=== PATIENT | male | born 1980 | race Caucasian/White ===

== ENCOUNTER 2022-07-25 18:35 | Inpatient (IN) | payer OTHER ==
[~2022-07-25] VITALS: Ht 180.3 cm; Wt 95.1 kg
[2022-07-25] MEDS ORDERED: MORPHINE SULFATE 4 MG/ML SYR/VIAL IV ONE (19:00)
[2022-07-25] MEDS ORDERED: ONDANSETRON HCL 4 MG/2 ML VIAL IV ONE (19:00)
[2022-07-25 21:08] LABS: Basophils # (auto) 0 10 ^3/uL (0-0.2); Basophils % (auto) 0.5 % (0.0-2.0); Eosinophils # (auto) 0.1 10 ^3/uL (0-0.8); Eosinophils % (auto) 1.3 % (0.0-7.0); Hematocrit 47.1 % (41.0-53.0); Hemoglobin 15.9 g/dL (13.5-17.5); Lymphocytes # (auto) 2.4 10 ^3/uL (0.4-5.4); Lymphocytes % (auto) 38.3 % (10.0-50.0); Mean Corpuscular Hemoglobin 30.9 pg (28.0-32.0); Mean Corpuscular Hgb Conc. 33.8 g/dL (32.0-36.0); Mean Corpuscular Volume 91.5 fL (80.0-100.0); Monocytes # (auto) 0.5 10 ^3/uL (0-1.3); Monocytes % (auto) 8.5 % (0.0-12.0); Neutrophils # (auto) 3.2 10 ^3/uL (1.6-8.6); Neutrophils % (auto) 51.4 % (37.0-80.0); Nucleated Red Blood Cells % 0.2 %; Red Blood Cells 5.15 10^6/uL (4.5-5.90); Red Cell Distribution Width 13.6 % (11.8-14.3); White Blood Cell 6.3 10^3/uL (4.4-10.8)
[2022-07-25 21:22] LABS: Albumin 4.4 g/dL (3.4-5.0); BUN/Creatinine Ratio 13.2; Calcium 9.1 mg/dL (8.5-10.1); Magnesium 2.3 mg/dL (1.6-2.6); Potassium 3.5 mmol/L (3.5-5.1)
[2022-07-25 21:24] LABS: Bilirubin, Total 0.4 mg/dL (0.2-1.0); Total Protein 8.8 g/dL (6.4-8.2)
[2022-07-25] MEDS ORDERED: NITROGLYCERIN 0.4 MG SL TAB SL PRN ×3 (22:00→23:00)
[2022-07-25] MEDS: MORPHINE SULFATE INJ 2 MG/ml SYRG IV PRN (23:15)
[2022-07-26] MEDS: MORPHINE SULFATE INJ 2 MG/ml SYRG IV PRN ×5 (01:45→21:35)
[2022-07-26] MEDS ORDERED: NITROGLYCERIN 0.4 MG SL TAB SL PRN (02:00)
[2022-07-26] MEDS ORDERED: ADENOSINE 92 MG in GIVE UN-DILUTED 0 ML IV STA (07:46)
[2022-07-26] MEDS: MORPHINE SULFATE 4 MG/ML SYR/VIAL IV PRN (07:55)
[2022-07-26 09:42] VITALS: BP 124/87
[2022-07-26] MEDS ORDERED: NITROGLYCERIN 0.4 MG SL TAB SL ONE (10:00)
[2022-07-26] MEDS: ASPirin 81 mg TAB PO SCH (10:44)
[2022-07-26] MEDS: amLODIPine BESYLATE 5 MG TAB PO SCH (10:45)
[2022-07-26] MEDS: ENOXAPARIN SOD 40 MG/0.4 ML SYRINGE SC SCH (10:45)
[2022-07-26] MEDS: HCTZ 25 MG TAB PO SCH (10:45)
[2022-07-26] MEDS: PANTOPRAZOLE 40 MG TAB PO SCH (11:48)
[2022-07-26 22:12] VITALS: BP 132/83
[2022-07-27] MEDS: MORPHINE SULFATE 4 MG/ML SYR/VIAL IV PRN ×5 (00:30→20:13)
[2022-07-27 04:11] LABS: Partial Thromboplastin Time 27.9 sec (24.6-33.4)
[2022-07-27 04:46] VITALS: BP 104/65
[2022-07-27 09:00] VITALS: BP 119/81
[2022-07-27] MEDS: PANTOPRAZOLE 40 MG TAB PO SCH (09:45)
[2022-07-27] MEDS: ASPirin 81 mg TAB PO SCH (09:47)
[2022-07-27] MEDS: HCTZ 25 MG TAB PO SCH (09:47)
[2022-07-27] MEDS: amLODIPine BESYLATE 5 MG TAB PO SCH ×2 (09:48→10:37)
[2022-07-27] MEDS: ENOXAPARIN SOD 40 MG/0.4 ML SYRINGE SC SCH (09:48)
[2022-07-27 13:07] VITALS: BP 126/84
[2022-07-27 16:21] VITALS: BP 123/66
[2022-07-27 21:50] VITALS: BP 124/77
[2022-07-28] VITALS (9 sets, daily range): BP systolic 110–136; BP diastolic 72–85
[2022-07-28] MEDS ORDERED: HEPARIN SODIUM (PORCINE) 5000 UNITS/ML 1ML VIAL ONE (07:57)
[2022-07-28] MEDS ORDERED: ANGIOMAX 250 MG VIAL IV ONE (07:57)
[2022-07-28] MEDS ORDERED: VERAPAMIL 2.5MG/ML INJ 2ML VIAL IV ONE (07:57)
[2022-07-28] MEDS ORDERED: fentaNYL CITRATE 100 MCG/2 ML VL ONE ×2 (07:57→08:52)
[2022-07-28] MEDS ORDERED: LIDOCAINE 2%HCL (LOCAL ANESTH.) INJ 20ML MDV ONE ×2 (07:58→08:55)
[2022-07-28] MEDS ORDERED: SODIUM CHL 0.9% 0 ML ONE (07:58)
[2022-07-28] MEDS ORDERED: MIDAZOLAM HCL 2MG/2ML 2ml VIAL (1mg/ml) ONE ×2 (07:58→08:52)
[2022-07-28] MEDS ORDERED: IODIXANOL 320MG/ML 100ML BTL IV ONE ×2 (08:02→09:05)
[2022-07-28] MEDS ORDERED: HYDROmorphone HCL 2 MG/ML VL/or syr ONE (09:08)
[2022-07-28] MEDS: ENOXAPARIN SOD 40 MG/0.4 ML SYRINGE SC SCH (11:37)
[2022-07-28] MEDS: PANTOPRAZOLE 40 MG TAB PO SCH (11:37)
[2022-07-28] MEDS: ASPirin 81 mg TAB PO SCH (11:39)
[2022-07-28] MEDS: HCTZ 25 MG TAB PO SCH (11:40)
[2022-07-28] MEDS: amLODIPine BESYLATE 5 MG TAB PO SCH (11:40)
[2022-07-28] MEDS: MORPHINE SULFATE 4 MG/ML SYR/VIAL IV PRN ×2 (15:53→20:31)
[2022-07-28 17:34] LABS: Urine Amorphous Crystal FEW /hpf (None Seen); Urine Bacteria NONE SEEN /hpf (None Seen); Urine Mucus FEW (None Seen); Urine WBC <1 /hpf (0 - 3)
[2022-07-28 17:36] LABS: Urine Blood Negative /uL (Negative); Urine Specific Gravity 1.005 (1.001-1.035)
[2022-07-28] MEDS ORDERED: ASPI-325 PO (19:08)
[2022-07-28] MEDS ORDERED: HYDR25TA5 PO (19:08)
[2022-07-28] MEDS ORDERED: AML5T PO (19:08)
== END 2022-07-28 23:55 | DRG 287 ==
LOC: EDBD 18:35 → ER 18:40 → EEVIPCON 18:40 → TELE 21:59 → TELE-WESTW 07-26 21:01
PROVIDERS: ADMIT Internal Medicine; ATTEND Internal Medicine
PROC: 03HY32Z Insertion of Monitoring Device into Upper Artery, Percutaneous Approach (ICD-10-PCS; principal; 2022-07-27)
PROC: 4A023N8 Measurement of Cardiac Sampling and Pressure, Bilateral, Percutaneous Approach (ICD-10-PCS; 2022-07-27)
PROC: B211YZZ Fluoroscopy of Multiple Coronary Arteries using Other Contrast (ICD-10-PCS; 2022-07-27)
PROC: B215YZZ Fluoroscopy of Left Heart using Other Contrast (ICD-10-PCS; 2022-07-27)
PROC: B41FYZZ Fluoroscopy of Right Lower Extremity Arteries using Other Contrast (ICD-10-PCS; 2022-07-27)
DX: I35.0 Nonrheumatic aortic (valve) stenosis (principal); Z20.822 Contact with and (suspected) exposure to COVID-19; Z82.49 Family history of ischemic heart disease and other diseases of the circulatory system; Z87.891 Personal history of nicotine dependence; R07.9 Chest pain, unspecified
CPT/HCPCS: 36415; 71045; 75710; 78452; 80053; 81001; 83735; 83880; 84484; 85025; 85610; 85730; 86850; 86900; 86901; 87426; 93005; 93017; 93306; 93458; 96374; 96375; 99152; 99153; C1751; G0378; J0153; J2250; J2405; Q9967